=== PATIENT | male | born 1995 | race Caucasian/White ===

== ENCOUNTER 2018-01-30 20:42 | Emergency (ER) | payer OTHER ==
[2018-01-30 21:19] LABS: Absolute Lymphocytes (CBC) 2.6 K/uL (0.7-4.9); Absolute Monocytes 0.9 K/uL (0.1-1.3); Absolute Neutrophil 7.5 K/uL (1.8-8.0); Basophils % 0.5 % (0-1.3); Hematocrit 46.7 % (39.6-49.0); Lymphocytes % 23.3 % (15.3-44.8); MCH 30.6 pg (27.0-35.0); MCV 89.8 fL (80-100); MPV 9.9 fL (7.6-11.3); Monocytes % 7.9 % (3.3-12.3)
[2018-01-30 21:24] LABS: Glomerular Filtration Rate > 60 mL/min (>60)
[2018-01-30 21:25] LABS: Potassium 3.6 mEq/L (3.6-5.0)
[2018-01-30 21:31] LABS: Albumin 4.4 g/dL (3.2-5.5); Bilirubin Direct 0.1 mg/dL (0-0.2); Bilirubin Total 0.6 mg/dL (0.3-1.2); Protein, Total 7.7 g/dL (6.0-8.3)
[2018-01-30] MEDS ORDERED: ONDANSETRON 4 MG/2 ML VIAL ONE (21:49)
[2018-01-30] MEDS ORDERED: KETOROLAC 30 MG/ML INJ ONE (21:49)
[2018-01-30] MEDS ORDERED: PANTOPRAZOLE 40 MG INJ ONE (21:50)
[2018-01-30] MEDS ORDERED: NA CHLORIDE 0.9% 1,000 ML ONE (21:50)
--- NOTE | 2018-01-30 21:59 | RAD REPORT ---
EXAM DESCRIPTION: CT - Stone Protocol - 01/30/2018 9:48 pm CLINICAL HISTORY: Abdominal pain. With vomiting and diarrhea COMPARISON: None. TECHNIQUE: Computed axial tomography of the abdomen pelvis was obtained without oral or IV contrast. Lack of IV and oral contrast limits evaluation of solid organs, bowel, and vessels. Coronal reformat jennifer images were obtained and reviewed. All CT scans are performed using dose optimization technique as appropriate and may include automated exposure control or mA/KV adjustment according to patient size. FINDINGS: A renal calculus is not seen. Minimal left hydronephrosis is present. A 2 millimeter calcu moni is present at the left ureteral vesicle junction. The liver, spleen, pancreas and adrenals appear grossly normal There is no evidence of diverticulitis. The appendix appears normal. A trace amount of free fluid is present within the pelvis. IMPRESSION: 2 millimeter calculus at the left ureterovesical junction resulting in minimal left hydr onephrosis
--- NOTE | 2018-01-30 22:26 | ER ---
Nurse's Notes [facility] Name: Breezy Quarles II Age: 22 yrs Sex: Male : 1995 Arrival Date: 01/30/2018 Time: 20:46 Bed 7 Private MD: Diagnosis: Hydronephrosis with renal and ureteral calculous obstruction-mild Presentation: 01/30 20:50 Presenting complaint: Patient states: abd pain with vomiting and diarrhea started at ak1 1900. pt took ibuprofen at 1900. Transition of care: patient was not received from another setting of care. Onset of symptoms was January 30, 2018. Care prior to arrival: None. 20:50 Method Of Arrival: Ambulatory ak1 20:50 Acuity: DEBORAH 3 ak1 Triage Assessment: 20:52 General: Appears uncomfortable, Behavior is calm, cooperative. ak1 20:54 Pain: Complains of pain in abdomen. ak1 Historical: - Allergies: 20:52 No Known Allergies; ak1 - Home Meds: 20:52 levothyroxine oral [Active]; duloxetine oral oral [Active]; Trokendi XR oral oral ak1 [Active]; Zyrtec Oral [Active]; - PMHx: 20:52 Depression; Headaches; Hypothyroidism; ak1 - PSHx: 20:52 Ear Tubes; ak1 - Immunization history:: Adult Immunizations up to date. - Social history:: Smoking status: Patient/guardian denies using tobacco. Screenin:54 Abuse screen: Denies threats or abuse. Denies injuries from another. Nutritional ak1 screening: No deficits noted. Tuberculosis screening: No symptoms or risk factors identified. Fall Risk None identified. Assessment: 20:54 General: Appears in no apparent distress. comfortable, obese, Behavior is calm, bp cooperative, appropriate for age. Pain: Complains of pain in left upper quadrant and left lower quadrant Pain currently is 9 out of 10 on a pain scale. Neuro: Level of Consciousness is awake, alert, obeys commands, Oriented to person, place, time, situation, Appropriate for age. Cardiovascular: No deficits noted. Respiratory: Airway is patent Respiratory effort is even, unlabored, Respiratory pattern is regular, symmetrical. GI: Bowel sounds present X 4 quads. Abd is soft X 4 quads. : No signs and/or symptoms were reported regarding the genitourinary system. EENT: No deficits noted. Derm: Skin is intact, is healthy with good turgor, Skin is dry, Skin is pink, warm \T\ dry. Musculoskeletal: Circulation, motion, and sensation intact. Range of motion: intact in all extremities. 22:00 Reassessment: PT RETURNED FROM CT, UOP PENDING. VS STABLE ON MONITOR, STATES MARKED bp RELIEF OF S/S. 22:48 Reassessment: PT D/C ON HOLD FOR IVF COMPLETION. bp 23:14 Reassessment: PT D/C HOME WITH FAMILY, DX WITH HYDRONEPHROSIS. bp Vital Signs: 20:52 BP 129 / 74; Pulse 55; Resp 18; Temp 97.9(TE); Pulse Ox 100% on R/A; Weight 108.86 kg ak1 (R); Height 5 ft. 10 in. (177.80 cm) (R); Pain 6/10; 22:13 BP 129 / 70; Pulse 52; Resp 14; Pulse Ox 98% ; bp 23:16 BP 136 / 70; Pulse 51; Resp 16; Pulse Ox 100% ; bp 20:52 Body Mass Index 34.44 (108.86 kg, 177.80 cm) ak1 ED Course: 20:46 Patient arrived in ED. es 20:47 Jeann[facility] Martin [facility]-C [facility]. snw 20:47 Tomás iDallo MD is Attending Physician. snw 20:51 Triage completed. ak1 20:52 Arm band placed on Patient placed in an exam room, on a stretcher, Patient notified of ak1 wait time. 20:54 Deshaun Leo, BETY is Primary Nurse. bp 20:54 Patient has correct armband on for positive identification. Bed in low position. Call ak1 light in reach. Side rails up X 1. Adult w/ patient. 20:56 Inserted saline lock: 20 gauge in right antecubital area, using aseptic technique. bp Blood collected. 21:[address] In Process Unspecified. EDMS 21:51 CT completed. Patient tolerated procedure well. Patient moved back from CT. bq 23:15 No provider procedures requiring assistance completed. IV discontinued, intact, bp bleeding controlled, No redness/swelling at site. Pressure dressing applied. Administered Medications: 21:37 Drug: NS 0.9% 1000 ml Route: IV; Rate: 1 bolus; Site: right antecubital; bp 23:17 Follow up: IV Status: Completed infusion bp 21:37 Drug: ProTONIX 40 mg Route: IVP; Site: right antecubital; bp 22:15 Follow up: Response: Marked relief of symptoms bp 21:37 Drug: Zofran 4 mg Route: IVP; Site: right antecubital; bp 22:15 Follow up: Response: Marked relief of symptoms bp 21:38 Drug: TORadol 30 mg Route: IVP; Site: right antecubital; bp 22:15 Follow up: Response: Marked relief of symptoms bp 22:48 Drug: Flomax 0.4 mg Route: PO; bp 22:48 Follow up: Response: No adverse reaction bp Outcome: 22:26 Discharge ordered by MD. snw 23:15 Discharged to home ambulatory, with family. bp 23:15 Condition: stable 23:15 Discharge instructions given to patient, Instructed on discharge instructions, follow up and referral plans. medication usage, Demonstrated understanding of instructions, follow-up care, medications, Prescriptions given X 3. 23:18 Patient left the ED. bp Signatures: Dispatcher [employer] EDMS Jeannette Martin, SUCTION WORKER-C SUCTION WORKER-Csnw Faye Sol Betty bq Krenek, Amber, RN RN ak1 Deshaun Leo RN RN bp Corrections: (The following items were deleted from the chart) 20:54 20:50 Presenting complaint: Patient states: abd pain and vomiting started at 1900. pt ak1 took ibuprofen at 1900. ak1
--- NOTE | 2018-01-30 22:27 | EDPHYS ---
Physician Documentation [facility] Name: Breezy Quarles II Age: 22 yrs Sex: Male : 1995 Arrival Date: 01/30/2018 Time: 20:46 Bed 7 Private MD: ED Physician Tomás Diallo HPI: 01/30 21:35 This 22 yrs old Male presents to ER via Ambulatory with complaints of snw Abdominal Pain. 21:35 The patient presents with abdominal pain in the lower abdomen. Onset: The snw symptoms/episode began/occurred suddenly, and became persistent. The symptoms radiate to left back. Associated signs and symptoms: Pertinent positives: nausea, vomiting, and diarrhea. The symptoms are described as crampy, sharp. Severity of pain: At its worst the pain was moderate severe. The patient has not experienced similar symptoms in the past. It is unknown whether or not the patient has recently seen a physician. no fever. Historical: - Allergies: 20:52 No Known Allergies; ak1 - Home Meds: 20:52 levothyroxine oral [Active]; duloxetine oral oral [Active]; Trokendi XR oral oral ak1 [Active]; Zyrtec Oral [Active]; - PMHx: 20:52 Depression; Headaches; Hypothyroidism; ak1 - PSHx: 20:52 Ear Tubes; ak1 - Immunization history:: Adult Immunizations up to date. - Social history:: Smoking status: Patient/guardian denies using tobacco. ROS: 21:34 Constitutional: Negative for fever, chills, and weight loss, Eyes: Negative for injury, snw pain, redness, and discharge, ENT: Negative for injury, pain, and discharge, Neck: Negative for injury, pain, and swelling, Cardiovascular: Negative for chest pain, palpitations, and edema, Respiratory: Negative for shortness of breath, cough, wheezing, and pleuritic chest pain, Back: Negative for injury and pain, : Negative for injury, bleeding, discharge, and swelling, MS/Extremity: Negative for injury and deformity, Skin: Negative for injury, rash, and discoloration, Neuro: Negative for headache, weakness, numbness, tingling, and seizure. 21:34 Abdomen/GI: Positive for abdominal pain, nausea, vomiting, and diarrhea. Exam: 21:34 Head/Face: Normocephalic, atraumatic. Eyes: Pupils equal round and reactive to light, snw extra-ocular motions intact. Lids and lashes normal. Conjunctiva and sclera are non-icteric and not injected. Cornea within normal limits. Periorbital areas with no swelling, redness, or edema. ENT: Nares patent. No nasal discharge, no septal abnormalities noted. Tympanic membranes are normal and external auditory canals are clear. Oropharynx with no redness, swelling, or masses, exudates, or evidence of obstruction, uvula midline. Mucous membranes moist. Neck: Trachea midline, no thyromegaly or masses palpated, and no cervical lymphadenopathy. Supple, full range of motion without nuchal rigidity, or vertebral point tenderness. No Meningismus. Chest/axilla: Normal chest wall appearance and motion. Nontender with no deformity. No lesions are appreciated. Cardiovascular: Regular rate and rhythm with a normal S1 and S2. No gallops, murmurs, or rubs. Normal PMI, no JVD. No pulse deficits. Respiratory: Lungs have equal breath sounds bilaterally, clear to auscultation and percussion. No rales, rhonchi or wheezes noted. No increased work of breathing, no retractions or nasal flaring. Back: No spinal tenderness. No costovertebral tenderness. Full range of motion. Skin: Warm, dry with normal turgor. Normal color with no rashes, no lesions, and no evidence of cellulitis. MS/ Extremity: Pulses equal, no cyanosis. Neurovascular intact. Full, normal range of motion. Neuro: Awake and alert, GCS 15, oriented to person, place, time, and situation. Cranial nerves II-XII grossly intact. Motor strength 5/5 in all extremities. Sensory grossly intact. Cerebellar exam normal. Normal gait. Psych: Awake, alert, with orientation to person, place and time. Behavior, mood, and affect are within normal limits. 21:34 Constitutional: The patient appears alert, awake, pale, restless. 21:34 Abdomen/GI: Inspection: abdomen appears normal, Bowel sounds: active, Palpation: moderate abdominal tenderness, in the left lower quadrant. Vital Signs: 20:52 BP 129 / 74; Pulse 55; Resp 18; Temp 97.9(TE); Pulse Ox 100% on R/A; Weight 108.86 kg ak1 (R); Height 5 ft. 10 in. (177.80 cm) (R); Pain 6/10; 22:13 BP 129 / 70; Pulse 52; Resp 14; Pulse Ox 98% ; bp 23:16 BP 136 / 70; Pulse 51; Resp 16; Pulse Ox 100% ; bp 20:52 Body Mass Index 34.44 (108.86 kg, 177.80 cm) ak1 MDM: 21:08 Patient medically screened. snw 22:27 Data reviewed: vital signs, nurses notes. Data interpreted: Pulse oximetry: on room air snw is 98 %. Interpretation: normal. Counseling: I had a detailed discussion with the patient and/or guardian regarding: the historical points, exam findings, and any diagnostic results supporting the discharge/admit diagnosis, lab results, radiology results, the need for outpatient follow up, to return to the emergency department if symptoms worsen or persist or if there are any questions or concerns that arise at home. Special discussion: Based on the patient's Hx, exam, and Dx evaluation, there is no indication for emergent surgery or inpatient Tx. It is understood by the patient/guardian that if the Sx's persist or worsen they need to return immediately for re-evaluation. I have referred the patient to see his PCP for further evaluation of high blood pressure. Based on the history and exam findings, there is no indication for further emergent testing or inpatient evaluation. I discussed with the patient/guardian the need to see the primary care provider for further evaluation of the symptoms. 01/30 20:57 Order name: Amylase, Serum bp 01/30 20:57 Order name: Basic Metabolic Panel bp 01/30 20:57 Order name: CBC with Diff bp 01/30 20:57 Order name: Creatinine for Radiology bp 01/30 20:57 Order name: Hepatic Function bp 01/30 20:57 Order name: Lipase bp 01/30 20:57 Order name: Amylase Level; Complete Time: 21:33 EDMS 01/30 20:57 Order name: Basic Metabolic Panel; Complete Time: 21:33 EDMS 01/30 20:57 Order name: CBC with Automated Diff; Complete Time: 21:24 EDMS 01/30 20:57 Order name: Creatinine (Radiology Only); Complete Time: 21:26 EDMS 01/30 20:57 Order name: Liver (Hepatic) Function; Complete Time: 21:33 EDMS 01/30 20:57 Order name: Lipase; Complete Time: 21:33 EDMS 01/30 21:25 Order name: Stone Protocol CT; Complete Time: 22:10 snw 01/30 20:57 Order name: IV Saline Lock; Complete Time: 20:57 bp 01/30 20:57 Order name: Labs collected and sent; Complete Time: 21:37 bp Administered Medications: 21:37 Drug: NS 0.9% 1000 ml Route: IV; Rate: 1 bolus; Site: right antecubital; bp 23:17 Follow up: IV Status: Completed infusion bp 21:37 Drug: ProTONIX 40 mg Route: IVP; Site: right antecubital; bp 22:15 Follow up: Response: Marked relief of symptoms bp 21:37 Drug: Zofran 4 mg Route: IVP; Site: right antecubital; bp 22:15 Follow up: Response: Marked relief of symptoms bp 21:38 Drug: TORadol 30 mg Route: IVP; Site: right antecubital; bp 22:15 Follow up: Response: Marked relief of symptoms bp 22:48 Drug: Flomax 0.4 mg Route: PO; bp 22:48 Follow up: Response: No adverse reaction bp Disposition: 01/31 01:41 Co-signature as Attending Physician, Tomás Diallo MD I agree with the assessment and tw4 plan of care. Disposition: 01/30/18 22:26 Discharged to Home. Impression: Hydronephrosis with renal and ureteral calculous obstruction - mild. - Condition is Stable. - Discharge Instructions: Kidney Stones, Hydronephrosis, Dietary Guidelines to Help Prevent Kidney Stones. - Prescriptions for Zofran 4 mg Oral Tablet - take 1 tablet by ORAL route every 12 hours As needed; 20 tablet. Flomax 0.4 mg Oral Capsule, Sust. Release 24 hr - take 1 capsule by ORAL route once daily 1/2 hour following the same meal each day; 30 capsule. Diclofenac Sodium 75 mg Oral Tablet Sustained Release - take 1 tablet by ORAL route 2 times per day; 30 tablet. - Work release form, Medication Reconciliation Form, Thank You Letter, Antibiotic Education, Prescription Opioid Use form. - Follow up: Private Physician; When: 2 - 3 days; Reason: Recheck today's complaints, Continuance of care, Re-evaluation by your physician. Follow up: Emergency Department; When: As needed; Reason: Worsening of condition. Signatures: Dispatcher [employer] Jeannette Hilton, NERIS-C CARROT GRADER INSPECTOR-Sylviaw Bette Keller RN RN ak1 Deshaun Leo, RN RN bp Tomás Diallo MD MD tw4
[2018-01-30] MEDS ORDERED: TAMSULOSIN 0.4 MG SR CAP ONE (23:02)
== END 2018-01-30 23:18 | disposition home or self-care (01) ==
LOC: ER 20:42
DX: N13.2 Hydronephrosis with renal and ureteral calculous obstruction (principal); E03.9 Hypothyroidism, unspecified; F32.9 Major depressive disorder, single episode, unspecified
CPT/HCPCS: 36415; 74176; 76377; 80048; 80076; 82150; 83690; 85025; 96361; 96374; 96375; 99284; C9113; J2405; J7030